=== PATIENT | female | born 1995 | race Caucasian/White ===

== ENCOUNTER 2017-08-30 12:10 | Emergency (ER) | payer OTHER ==
[2017-08-30 13:11] LABS: ABS Basophils 0 10^3/ul (0-0.2); ABS Eosinophils 0.1 10^3/ul (0-0.6); ABS Lymphocytes 1.9 10^3/ul (1.0-4.8); ABS Monocytes 0.9 10^3/ul (0-0.8); ABS Neutrophils 9.1 10^3/ul (1.5-7.7); ABS Nucleated RBC 0 10^3/ul; Eosinophil % 0.9 % (0-6); Hematocrit 41 % (35-47); Hemoglobin 13.8 g/dl (12.0-16.0); Lymphocyte % 15.7 % (25-47); Mean Corpuscular HGB Conc 34 g/dl (31-36); Mean Corpuscular Hemoglobin 30 pg (27-31); Mean Corpuscular Volume 87 fL (80-97); Mean Platelet Volume 8 um3 (7.4-10.4); Nucleated Red Blood Cells % 0; Platelet Count 334 10^3/ul (150-450); Red Blood Count 4.68 10^6/ul (4.0-5.4); Red Cell Distribution Width 13 % (10.5-15); White Blood Count 12.1 10^3/ul (3.5-10.8)
[2017-08-30 13:11] LABS: Urine Appearance Cloudy; Urine Blood 3+ (Negative); Urine Color Amber; Urine Ketones Negative (Negative); Urine Protein 3+(>=500 mg/dL) (Negative); Urine Specific Gravity 1.026 (1.010-1.030); Urine Urobilinogen Negative (Negative)
--- NOTE | 2017-08-30 13:29 | ED ---
Tay Calixto Angela, scribed for Faiza Peterson MD on 08/30/17 at 1313 . - HPI Summary HPI Summary: This pt is a 22 y/o female, currently 7 weeks , presenting to [facility] c/o vaginal bleeding s/p accidental fall 4 steps down today. She reports the stairs are made out of carpet and are slippery, she was in socks when she slipped and fell. Denies anyone pushed her. Denies head strike or LOC. Denies blood from ear, nose, or mouth. Pt now c/o cramps on lower abd, burningn with urination, urinary frequency, mild right elbow pain, and sore lower back. She did not have abd pain prior to fall but maybe some dysuria. Pt notes she is not dripping blood, no vaginal loss of fluids, and but pink on toilet tissue after urinating. Pt has had a prior miscarriage when she was 6 weeks along, and had a D&C. No fevers, chills, rash. + po. She saw Dr. Jimenez yesterday for a routine check up and had an US, which was normal. Pt has never had bladder infections before. Denies any allergies. Pt Rh+ Patients medication reviewed this visit. - History of Current Complaint Chief Complaint: EDOBProblems Stated Complaint: 7 WEEKS PREG FALL DOWN STAIRS NOW BLEEDING Time Seen by Provider: 08/30/17 13:08 Hx Obtained From: Patient Chief Complaint: Vaginal Bleeding - with urination only with wiping Onset/Duration: Started Hours Ago, Traumatic, Still Present Timing: Lasting Hours Current Severity: Severe Pain Intensity: 8 Location of Pain: Suprapubic Character: Cramping Aggravating Factors: Nothing Alleviating Factors: Nothing Associated Signs and Symptoms: Positive: Back Pain - mild, Vaginal Bleeding or Discharge - vaginal bleeding, Other: - abd pain - Assessment Hx Now: Yes - 7 weeks - Allergies/Home Medications Allergies/Adverse Reactions: Allergies Allergy/AdvReac Type Severity Reaction Status Date / Time No Known Allergies Allergy Verified 07/26/16 10:19 PMH/Surg Hx/FS Hx/Imm Hx Previously Healthy: Yes Endocrine/Hematology History: Denies: Hx Diabetes Cardiovascular History: Denies: Hx Hypertension, Hx Pacemaker/ICD Sensory History: Denies: Hx Hearing Aid Psychiatric History: Denies: Hx Panic Disorder - Surgical History Surgery Procedure, Year, and Place: tonsills, adenoids, ear tubes. CHOLECYSTECTOMY. D&C Infectious Disease History: No Infectious Disease History: Denies: History Other Infectious Disease, Traveled Outside the [place] in Last 30 Days - Family History Known Family History: Negative: Hypertension, Diabetes - Social History Occupation: Unemployed Lives: With Family Alcohol Use: None Substance Use Type: Reports: None Smoking Status (MU): Never Smoked Tobacco Review of Systems Negative: Fever, Chills Eyes: Negative ENT: Negative Cardiovascular: Negative Respiratory: Negative Positive: Abdominal Pain. Negative: Vomiting, Nausea Positive: other - vaginal bleeding Musculoskeletal: Other - back pain, right elbow pain Skin: Negative Neurological: Negative All Other Systems Reviewed And Are Negative: Yes Physical Exam - Physical Exam Triage Information Reviewed: Yes Vital Signs Reviewed: Yes Appearance: Positive: Well-Appearing, No Pain Distress, Well-Nourished Skin: Positive: Warm, Skin Color Reflects Adequate Perfusion, Dry, Other - no contusions, abraisons abd, back Head/Face: Positive: Normal Head/Face Inspection Eyes: Positive: Normal, EOMI, RICHY ENT: Positive: Normal ENT inspection, Hearing grossly normal, Pharynx normal, TMs normal Neck: Positive: Supple, Nontender, No Lymphadenopathy Respiratory/Lung Sounds: Positive: Clear to Auscultation, Breath Sounds Present , Decreased Breath Sounds Cardiovascular: Positive: Normal, RRR. Negative: Murmur Abdomen Description: Positive: Nontender, No Organomegaly, Soft, Other: - + BS no guarding, no rebound, soft Pelvic: no external lesions scant which mucous discharge in cervix No blood in os No blood in vault No CMT no odor No blood noted. Negative: CVA Tenderness (R), CVA Tenderness (L) Bowel Sounds: Positive: Present Musculoskeletal: Positive: Normal, Other - No pain c/t/l/s Full AROM c spine mild paraspinal pain low lumbar Neurological: Positive: Normal, Sensory/Motor Intact, Alert, Oriented to Person Place, Time Psychiatric: Positive: Normal AVPU Assessment: Alert - [place] Coma Scale Eye: 4 - Spontaneous Motor: 6 - Obeys Commands Verbal: 5 - Oriented Coma Scale Total: 15 Diagnostics - Vital Signs Vital Signs Temp Pulse Resp BP Pulse Ox 08/30/17 12:16 99.2 F 65 18 157/74 97 - Laboratory Result Diagrams: 08/30/17 12:52 08/30/17 12:52 Lab Statement: Any lab studies that have been ordered have been reviewed, and results considered in the medical decision making process. - Ultrasound No standard instances Ultrasound Interpretation: Positive (See Comments) - Transvaginal US IMPRESSION : Single live intrauterine gestation at 6 weeks, 6 days by crown-rump length. This is slightly discordant with the age by dates. Recommend attention on follow -up imaging. Dr. Peterson has reviewed this radiology report. Ultrasound Interpretation Completed By: Radiologist Re-Evaluation - Re-Evaluation First Eval Re-Evaluation Time: 14:35 Change: Improved - pain slightly iimproved labs stable us reassuring + uti will start keflex hydrate ob followup return precautions pelvic rest urine cultre, supervisor electronics testing cultures Course/Dx - Course Course Of Treatment: Pt is 7 weeks with dysuria, frequency, urgency, pink on toilet tissue s/p mechanical fall this morning. Pt reports lower abdominal disocmfort. . Pt with no blood on pelvic exam and closed os. Will check labs, ultrasound urne. APAP. reassess - Diagnoses Provider Diagnoses: UTI (urinary tract infection), Contusion, Fall Discharge - Discharge Plan Condition: Stable Disposition: HOME Prescriptions: Cephalexin CAP* [Keflex CAP*] 500 mg PO TID #21 cap Patient Education Materials: Contusion in Adults (ED), Urinary Tract Infection in (ED) Referrals: Aleah Garcia [Primary Care Provider] - Additional Instructions: - Stay well hydrated. Drink plenty of non-alcoholic, non-caffinated beverages - Okay to take tylenol every 6 hours as needed for john - Apply heat to the areas of discomfort - Take antibiotics as prescribed until gone - You urine had been sent for additional testing - if you need a different antibiotics, a member of our care team will contact you - If you develop fevers, back pain, vomiting, increased pain, contracts or ANY other concerns - contact your supervisor electronics testing or return to the emergency department - Contact your supervisor electronics testing to schedule a follow-up appointment The documentation as recorded by the Tay rosas Angela accurately reflects the service I personally performed and the decisions made by , Faiza Peterson MD.
[2017-08-30 13:37] LABS: EGFR Non-African American 135.4 (>60)
[2017-08-30] MEDS ORDERED: Cephalexin CAP* 500 MG PO ONE (14:48)
--- NOTE | 2017-08-30 14:56 | RAD ---
HISTORY: , vaginal bleeding, fall, gestational age by dates of 8 weeks and 2 days COMPARISONS: None relevant TECHNIQUE: Multiple transverse and longitudinal ultrasound images were obtained of the pelvis using grayscale, color Doppler, spectral Doppler imaging and M-Mode Doppler imaging using the endovaginal transducer. FINDINGS: UTERUS: The uterus is normal in shape, size, contour, and echotexture. GESTATION: There is a single live intrauterine gestation. The crown-rump length measures 0.87 cm for a gestational age of 6 weeks and 6 days. The PRINCE is April 19, 2015 by the crown-rump length. This is slightly discordant with the age by dates... cardiac motion is detected at a rate of 132 beats per minute. Gross movement is not identified. anatomy cannot be assessed secondary to early dates. The amniotic fluid is qualitatively normal. There are no retroplacental fluid collections. CUL-DE-SAC: There is no free fluid within the cul-de-sac. RIGHT OVARY: The right ovary measures 3.2 x 1.4 x 2.4 cm. Normal arterial and venous waveforms are identifiable within the ovary on spectral Doppler imaging. LEFT OVARY: The left ovary measures 2.4 x 2.1 x 2.4 cm. Normal arterial and venous waveforms are identifiable within the ovary on spectral Doppler imaging. BLADDER: The bladder is not well visualized. IMPRESSION: SINGLE LIVE INTRAUTERINE GESTATION AT 6 WEEKS, 6 DAYS BY CROWN-RUMP LENGTH. THIS IS SLIGHTLY DISCORDANT WITH THE AGE BY DATES. RECOMMEND ATTENTION ON FOLLOW-UP IMAGING.
[2017-08-30 17:47] VITALS: BP 151/87
--- NOTE | 2017-09-02 09:16 | PN ---
Progress Note - Progress Note Date of Service: 08/30/17 Note: patient diagnosed and treated for UTI. Placed on keflex. has susceptibility on urine final culture results. no further changes required at this time.
== END 2017-08-30 15:05 | disposition home or self-care (01) ==
LOC: ED 12:10
DX: O23.41 Unspecified infection of urinary tract in pregnancy, first trimester (principal); Z3A.01 Less than 8 weeks gestation of pregnancy; S50.01XA Contusion of right elbow, initial encounter; M54.9 Dorsalgia, unspecified; R10.30 Lower abdominal pain, unspecified; W10.9XXA Fall (on) (from) unspecified stairs and steps, initial encounter; Y92.9 Unspecified place or not applicable
CPT/HCPCS: 36415; 76817; 80048; 81003; 81015; 83735; 84702; 85025; 86900; 86901; 87077; 87086; 87186; 87480; 87491; 87510; 87591; 87661; 99283; A9270-GY

== ENCOUNTER 2017-11-16 13:48 | Emergency (ER) | payer OTHER ==
[2017-11-16 14:24] VITALS: BP 133/63
--- NOTE | 2017-11-16 21:35 | UC ---
Lesley Calixto Gabriel, scribed for Tyler Martines MD on 11/16/17 at 1454 . Back Pain HPI - HPI Summary HPI Summary: This patient is a 22 year old F presenting to [facility] with a chief complaint of bilateral flank pain since 11-08-17. The patient was seen by OB on the and they told her there were no major concerns. Since then the pain has gotten worse and it is mostly on the right. The patient rates the pain 5/10 in severity and states it does not radiate. She is 18 weeks . . LNMP was Jul.04. Patient denies vaginal discharge and bleeding. - History of Current Complaint Chief Complaint: UCBackPain Stated Complaint: SIDE PAIN Time Seen by Provider: 11/16/17 14:27 Hx Obtained From: Patient Hx Last Menstrual Period: started 09/05 - still bleeding Onset/Duration: Lasting Days, Still Present Timing: Constant Severity Initially: Mild Severity Currently: Moderate Pain Intensity: 5 Pain Scale Used: 0-10 Numeric Associated Signs And Symptoms: Positive: Negative - vaginal discharge and bleeding, Other - bilat flank pain - Allergies/Home Medications Allergies/Adverse Reactions: Allergies Allergy/AdvReac Type Severity Reaction Status Date / Time No Known Allergies Allergy Verified 11/16/17 14:24 Home Medications: Home Medications Vit37/Iron/Folic Acid [Prenata Chewable Tablet] 1 tab PO DAILY [History Confirmed 11/16/17] PMH/Surg Hx/FS Hx/Imm Hx Previously Healthy: Yes Other History Of: Negative For: Hepatitis C, Anticoagulant Therapy - Surgical History Surgical History: Yes Surgery Procedure, Year, and Place: tonsills, adenoids, ear tubes. CHOLECYSTECTOMY. D&C - Family History Known Family History: Negative: Hypertension, Diabetes - Social History Lives: With Family Alcohol Use: None Substance Use Type: None Smoking Status (MU): Never Smoked Tobacco - Immunization History Vaccination Up to Date: Yes Review of Systems Genitourinary: Negative - bleeding and discharge Musculoskeletal: Negative - bilat flank pain All Other Systems Reviewed And Are Negative: Yes Physical Exam - Summary Physical Exam Summary: VITAL SIGNS: Reviewed. GENERAL: Patient is an obese F who is lying comfortable in the stretcher. Patient is not in any acute respiratory distress. HEAD AND FACE: Normocephalic EYES: PERRLA, EOMI x 2. EARS: Hearing grossly intact. MOUTH: Oropharynx within normal limits. NECK: Supple, trachea is midline, no adenopathy, no JVD, no carotid bruit. CHEST: Symmetric, no tenderness at palpation LUNGS: Clear to auscultation bilaterally. No wheezing or crackles. CVS: Regular rate and rhythm, S1 and S2 present, no murmurs or gallops appreciated. BACK: right CVA tenderness ABDOMEN: Soft, non-tender. Bowel sounds are normal. No abdominal abnormal pulsations. EXTREMITIES: Full ROM in all major joints, no edema, no cyanosis or clubbing. NEURO: Alert and oriented x 3. No acute neurological deficits. Speech is normal and follows commands. SKIN: Dry and warm Triage Information Reviewed: Yes Vital Signs: Initial Vital Signs Temp 97.6 F 11/16/17 14:19 Pulse 75 11/16/17 14:19 Resp 18 11/16/17 14:19 BP 133/63 11/16/17 14:19 Pulse Ox 100 11/16/17 14:19 Vital Signs Reviewed: Yes Re-Evaluation - Re-Evaluation First Eval Re-Evaluation Time: 15:40 Change: Worse Comment: The pt now is complaining of lower ABD cramping. Back Pain Course/Dx - Course Course Of Treatment: The patient was found to have increased BP in UC. The patient will follow up with PCP for better control of BP. UA was negative for UTI. I discussed all the findings and test results with the patient. Since the patient began experiencing Abdominal cramping in the UC, and she continue to have flank pain she was instructed to report to the ED for further testing. It was suggested she take an ambulance but she declined and decided to get a ride from her partner. Plan of care was discussed with the patient, and patient understands and agrees. All questions were answered to patient satisfaction. There were no further complaints or concerns. - Differential Dx/Diagnosis Provider Diagnoses: Elevated blood pressure without a previous diagnoses of hypertension and flank pain Discharge - Sign-Out/Discharge Documenting (check all that apply): Discharge - Discharge Plan Condition: Stable Disposition: HOME Patient Education Materials: (ED), Flank Pain (ED) Referrals: Aleah Garcia [Primary Care Provider] - Additional Instructions: Patient will be discharge to the ED for further assessment. Patient declined ambulance. FOLLOW UP WITH YOUR PRIMARY CARE PROVIDER WITHIN ONE WEEK FOR HIGH BLOOD PRESSURE NOTED TODAY. RETURN TO URGENT CARE OR THE ED FOR ANY WORSENING OR NEW SYMPTOMS. - Billing Disposition and Condition Condition: STABLE Disposition: HOME The documentation as recorded by the Lesley rosas Gabriel accurately reflects the service I personally performed and the decisions made by me, Tyler Martines MD.
--- NOTE | 2017-11-18 10:22 | UC ---
- Progress Note Progress Note: final urine culture reviewed No change rosario 11/18/2017 Re-Evaluation - Re-Evaluation First Eval Re-Evaluation Time: 15:40 Change: Worse Comment: The pt now is complaining of lower ABD cramping. Discharge - Sign-Out/Discharge Documenting (check all that apply): Discharge - Discharge Plan Condition: Stable Disposition: HOME Patient Education Materials: (ED), Flank Pain (ED) Referrals: Aleah Garcia [Primary Care Provider] - Additional Instructions: Patient will be discharge to the ED for further assessment. Patient declined ambulance. FOLLOW UP WITH YOUR PRIMARY CARE PROVIDER WITHIN ONE WEEK FOR HIGH BLOOD PRESSURE NOTED TODAY. RETURN TO URGENT CARE OR THE ED FOR ANY WORSENING OR NEW SYMPTOMS. - Billing Disposition and Condition Condition: STABLE Disposition: HOME
== END 2017-11-16 15:45 | disposition home or self-care (01) ==
LOC: UCEAST 13:48
DX: O26.892 Other specified pregnancy related conditions, second trimester (principal); R10.32 Left lower quadrant pain; R10.31 Right lower quadrant pain; Z3A.18 18 weeks gestation of pregnancy
CPT/HCPCS: 81003; 87086; 99212; G0463

== ENCOUNTER 2018-04-15 22:09 | Inpatient (IN) | payer MEDICAID, OTHER ==
--- NOTE | 2018-04-16 00:50 | PN ---
L&D Outpatient: Visit - Reproductive Information Estimated Due Date: 04/16/18 Gestational Age: 40 Weeks and 0 Days : 3 Para: 1 - Reason for Visit Visit Reason: contractions - Antepartal Records Antepartal Record: Reviewed, Complicated by: - obesity - Patient History Patient History Significant: Yes Patient History Significant For: h/o retained placenta Review of Systems Constitutional: Comfortable CV Complaint: No Respiratory: Shortness of Breath: No Gastrointestinal: No Nausea/Vomiting Genitourinary: No Dysuria, No Leaking Fluid Musculoskeletal: No Complaint Neurological: No Headache Movement: Normal L&D Outpatient: Exam - Cervical Exam Cervical Exam: 1:00 AM 3+/70/high recheck 3:00 AM 3+/70/-3 recheck 5:30 Am 4/80/-2 - Abdominal Exam Abdomen Exam: Non-Tender - Membranes Membrane Status: Intact - Ultrasound/Biophysical Profile Ultrasound Status: Not Done EFM Findings - External Monitor Findings Baseline Heart Rate: 130 - recheck 3:00 AM 110 recheck: 110 5:30 AM External Monitor Findings: Accelerations Present, Variability Moderate Contractions: Mild - irregular contractions L&D Outpatient: Asses/Plan - Discharge Diagnosis Discharge Diagnosis: False Labor Plan: Continue Observation
[2018-04-16] MEDS ORDERED: Nalbuphine* 10 MG/ML 1 ML VIAL IM PRN (06:00)
[2018-04-16] MEDS ORDERED: Oxytocin in LR* 20 UNITS/1,000 ML BAG IVPB ONE (10:36)
--- NOTE | 2018-04-16 10:50 | HP ---
General Information - Reason for Visit labor - General Information Maternal Age: 22 Grav: 3 Para: 1 SAB: 1 IEA: 0 Estimated Due Date: 04/16/18 Determined By: Early Ultrasound Maternal Blood Type and Rh: O Positive - Results this Serology/RPR Result: Non-Reactive Rubella Result: Immune HBsAg Result: Negative HIV Result: Negative GBS Culture Result: Negative Past Medical History Delivery History: Hx Complicated Vaginal Delivery - retained placenta, See Records Pertinent Past Medical History: See Records Pertinent Past Surgical History: See Records Pertinent Family History: Non-Contributory - Antepartal Records Antepartal Records: Reviewed, Complicated by: - BMI 48 prepregnancy - lost 25lbs during Review of Systems Constitutional: Comfortable CV Complaint: Yes Respiratory: Shortness of Breath: Yes Gastrointestinal: No Nausea/Vomiting Genitourinary: Bleeding - bloody show, No Dysuria, No Leaking Fluid Musculoskeletal: Contractions Neurological: No Headache Movement: Normal Exam Allergies/Adverse Reactions: Allergies No Known Allergies Allergy (Verified 03/24/18 20:39) - Measurements Height: 5 ft 5 in Weight: 272 lb Weight in lbs: [phone] Body Mass Index (BMI): 45.2 Pre- Weight: 298 lb 0.016 oz Weight Gained This : -26.001 lbs and 0 ozs - Exam Breast: Breast Exam Deferred Extremities: No Edema Heart: Normal Rhythm/Heart Sounds HEENT: No Significant Findings - Abdominal Exam Abdomen Exam: Non-Tender - Ultrasound/Biophysical Profile Ultrasound Status: Not Done Targeted Exam Findings See L&D Outpatient Visit Provider Note for Findings: Yes Cervical Exam: 5cm Effacement: 90% Station: Ballotable, -3 Presenting Part: Vertex Membrane Status: Bulging EFM Findings - External Monitor Findings Baseline Heart Rate: 130 External Monitor Findings: Accelerations Present, No Pattern of Variable or Late Decelerations, Variability Moderate Contractions: Regular - q2-3min Assessment/Plan - Assessment @40wks in early labor. Head ballotable so will not AROM yet. Pt interested in starting pitocin. - Obstetrical Risk Factors Obstetrical Risk Factors: Obesity - Plan Plan: Induction - Will augment with pitocin
[2018-04-16] MEDS ORDERED: Oxytocin in LR* 20 UNITS/1,000 ML BAG IVPB SCH (11:00)
[2018-04-16 11:27] LABS: ABS Basophils 0 10^3/ul (0-0.2); ABS Eosinophils 0 10^3/ul (0-0.6); ABS Lymphocytes 1.8 10^3/ul (1.0-4.8); ABS Monocytes 0.9 10^3/ul (0-0.8); ABS Neutrophils 8.7 10^3/ul (1.5-7.7); ABS Nucleated RBC 0 10^3/ul; Eosinophil % 0.3 % (0-6); Hematocrit 39 % (35-47); Hemoglobin 13.3 g/dl (12.0-16.0); Lymphocyte % 15.5 % (25-47); Mean Corpuscular HGB Conc 34 g/dl (31-36); Mean Corpuscular Hemoglobin 30 pg (27-31); Mean Corpuscular Volume 87 fL (80-97); Mean Platelet Volume 9.6 um3 (7.4-10.4); Nucleated Red Blood Cells % 0; Platelet Count 248 10^3/ul (150-450); Red Blood Count 4.48 10^6/ul (4.00-5.40); Red Cell Distribution Width 14 % (10.5-15); White Blood Count 11.4 10^3/ul (3.5-10.8)
[2018-04-16] MEDS ORDERED: Nalbuphine* 10 MG/ML 1 ML VIAL IV PRN (14:33)
[2018-04-16] MEDS ORDERED: Nalbuphine* 10 MG/ML 1 ML VIAL ONE (14:38)
[2018-04-16] MEDS ORDERED: Witch Hazel PAD* JAR TOPICAL PRN (16:42)
[2018-04-16] MEDS ORDERED: Glycerin ADULT SUPP PR PRN (16:42)
[2018-04-16] MEDS ORDERED: Dibucaine 1% 28.35 GM TUBE PR PRN (16:42)
[2018-04-16] MEDS ORDERED: Ibuprofen TAB* 600 MG ONE (17:07)
[2018-04-16] MEDS: Ibuprofen TAB* 600 MG PO PRN ×2 (17:08→23:33)
[2018-04-16] MEDS ORDERED: Simethicone TAB* 80 MG TAB.CHEW PO SCH (17:30)
--- NOTE | 2018-04-16 17:44 | PROCNOTE ---
[facility] OB: Delivery Note - Perineum Perineal Injury: None/Intact - Events Delivery Events of Note: Pitocin During Labor - Additional Delivery Notes Additional Delivery Notes: Delivery type: Delivering provider: Dr. Ramon Pt presented in early labor and eventually received pitocin augmentation. She then progressed to 5cm and underwent SROM and quickly progressed to fully dilated. She pushed once to deliver the baby's head in NILESH position. With reduction of a compound posterior hand she pushed to deliver the shoulders and the rest of the body. The baby was placed on mom's abdomen and the cord was clamped x2 and cut after 1min. Cord blood collected. Placenta delivered with fundal massage and gentle cord traction and appeared intact. No lacerations. Mom and baby stable Apgars: 8/9 Weight: 7lb 9oz Gender: Male - Jaece
[2018-04-17 06:23] LABS: ABS Basophils 0 10^3/ul (0-0.2); ABS Eosinophils 0.1 10^3/ul (0-0.6); ABS Lymphocytes 2.9 10^3/ul (1.0-4.8); ABS Monocytes 1.5 10^3/ul (0-0.8); ABS Neutrophils 10.1 10^3/ul (1.5-7.7); ABS Nucleated RBC 0 10^3/ul; Eosinophil % 0.5 % (0-6); Hematocrit 36 % (35-47); Hemoglobin 12.7 g/dl (12.0-16.0); Lymphocyte % 20.1 % (25-47); Mean Corpuscular HGB Conc 35 g/dl (31-36); Mean Corpuscular Hemoglobin 31 pg (27-31); Mean Corpuscular Volume 87 fL (80-97); Mean Platelet Volume 9.3 um3 (7.4-10.4); Nucleated Red Blood Cells % 0; Platelet Count 224 10^3/ul (150-450); Red Blood Count 4.17 10^6/ul (4.00-5.40); Red Cell Distribution Width 14 % (10.5-15); White Blood Count 14.6 10^3/ul (3.5-10.8)
[2018-04-17] MEDS: Docusate CAP* 100 MG PO SCH ×3 (08:09→22:25)
[2018-04-17] MEDS: Ibuprofen TAB* 600 MG PO PRN ×3 (08:09→22:25)
[2018-04-17] MEDS ORDERED: Ferrous Gluconate TAB* 324 MG TAB PO SCH (09:00)
[2018-04-17 20:56] VITALS: BP 140/73
[2018-04-17] MEDS: Acetaminophen TAB* 325 MG PO PRN (22:24)
[2018-04-18] MEDS: Acetaminophen TAB* 325 MG PO PRN (08:11)
[2018-04-18] MEDS: Docusate CAP* 100 MG PO SCH (08:11)
[2018-04-18] MEDS: Ibuprofen TAB* 600 MG PO PRN (08:12)
== END 2018-04-18 13:30 | disposition home or self-care (01) | DRG 560 ==
LOC: MCHOBOUT 22:09 → MCHOB 04-16 10:37
PROVIDERS: ADMIT Obstetrics & Gynecology; ATTEND Obstetrics & Gynecology
PROC: 10E0XZZ Delivery of Products of Conception, External Approach (ICD-10-PCS; principal; 2018-04-16)
PROC: 3E033VJ Introduction of Other Hormone into Peripheral Vein, Percutaneous Approach (ICD-10-PCS; 2018-04-16)
DX: O99.214 Obesity complicating childbirth (principal); Z68.42 Body mass index [BMI] 45.0-49.9, adult; E66.9 Obesity, unspecified; O32.6XX0 Maternal care for compound presentation, not applicable or unspecified; Z3A.40 40 weeks gestation of pregnancy; Z37.0 Single live birth
CPT/HCPCS: 36415; 85025; 86850; 86900; 86901; A9270-GY; J2300

== ENCOUNTER 2022-11-11 09:48 | Inpatient (IN) ==
[2022-11-11] MEDS ORDERED: Buffered Lidocaine 1% SYRIN 1 ml INTRADERM ONE (11:34)
[2022-11-11] MEDS ORDERED: Nalbuphine 10 MG/ML 1 ML VIAL IV PRN (11:34)
[2022-11-11] MEDS ORDERED: Promethazine INJ(RESTRICTED) 25 MG/ML 1 ml VIAL IV PRN (11:34)
[2022-11-11] MEDS ORDERED: Dinoprostone 10 MG VAG.SUPP VAGINAL ONE (11:34)
[2022-11-11] MEDS ORDERED: Lactated Ringers 1000 ml BAG 1,000 ML IV ONE (11:34)
[2022-11-11] MEDS ORDERED: Lactated Ringers 1000 ml BAG 1,000 ML IV SCH (12:00)
[2022-11-11 14:07] LABS: ABS Eosinophils 0.1 10^3/ul (0-0.6); ABS Lymphocytes 1.7 10^3/ul (1.0-4.8); Eosinophil % 1.1 %; Hematocrit 39 % (35-47); Hemoglobin 13.1 g/dL (12.0-16.0); Lymphocyte % 17.6 %; Mean Corpuscular HGB Conc 34 g/dL (31-36); Mean Corpuscular Hemoglobin 30 pg (27-31); Mean Corpuscular Volume 88 fL (80-97); Mean Platelet Volume 9.6 fL (7.4-10.4); Platelet Count 251 10^3/uL (150-450); Red Blood Count 4.44 10^6 /uL (3.70-4.87); Red Cell Distribution Width 14 % (10-15); White Blood Count 9.9 10^3/uL (3.5-10.8)
[2022-11-11 14:27] LABS: Urine Benzodiazepine Screen None Detected (None Detect); Urine Cannabinoids Screen None Detected (None Detect); Urine Opiates Screen None Detected (None Detect)
[2022-11-11 14:56] LABS: Albumin 3.4 g/dL (3.2-5.2); Albumin/Globulin Ratio 1.5 (1-3); Creatinine, Serum 0.42 mg/dL (0.51-0.95); Globulin 2.3 g/dL (2-4); Potassium 4.4 mmol/L (3.5-5.0); Total Bilirubin 0.2 mg/dL (0.2-1.0); Total Protein 5.7 g/dL (6.4-8.9); eGFR CKD-EPI 137.4 (>60)
[2022-11-12] MEDS ORDERED: Oxytocin in LR 20,000 MILLI.UNIT/1,000 ML BAG IV SCH ×2 (04:15→16:30)
[2022-11-12] MEDS ORDERED: Tranexamic Acid 1 GM/100ML BAG 0 MG/0 ML BAG IV ONE (10:20)
[2022-11-12] MEDS ORDERED: Methylergonovine 0.2 mg AMPULE 1 ml AMP ONE (10:21)
[2022-11-12] MEDS ORDERED: fentaNYL 100 mcg/2 ml 50 MCG/ML VIAL IV SLOW PU PRN ×2 (13:08→14:35)
[2022-11-12] MEDS ORDERED: Promethazine INJ(RESTRICTED) 25 MG/ML 1 ml VIAL IV PRN (13:09)
[2022-11-12] MEDS ORDERED: Glycerin ADULT 2.4 gm SUPP PR PRN (16:19)
[2022-11-12] MEDS ORDERED: Witch Hazel PAD JAR TOPICAL PRN (16:19)
[2022-11-12] MEDS ORDERED: Dibucaine 1% OINT 28.35 GM TUBE PR PRN (16:19)
[2022-11-12] MEDS ORDERED: ceFOXitin 2 GM IVPREMIX 2 GM/50 ML BAG IVPB ONE (16:20)
[2022-11-12] MEDS ORDERED: Lactated Ringers 1000 ml BAG 1,000 ML IV SCH (17:00)
[2022-11-13] MEDS ORDERED: Varicella Virus Vaccine Live 0.5 ML VIAL SUBCUT ONE (09:00)
[2022-11-13] MEDS ORDERED: Tetan/Diph/Pertus SYR(Tdap) 0.5 ML SYR(BOOSTRIX) use SYR contains LATEX IM ONE (09:00)
[2022-11-13 09:19] LABS: ABS Eosinophils 0.1 10^3/ul (0-0.6); ABS Monocytes 1.4 10^3/ul (0-0.8); Eosinophil % 0.7 %; Hematocrit 37 % (35-47); Hemoglobin 12.5 g/dL (12.0-16.0); Lymphocyte % 14.8 %; Mean Corpuscular HGB Conc 34 g/dL (31-36); Mean Corpuscular Hemoglobin 30 pg (27-31); Mean Corpuscular Volume 87 fL (80-97); Mean Platelet Volume 9.2 fL (7.4-10.4); Platelet Count 235 10^3/uL (150-450); Red Blood Count 4.24 10^6 /uL (3.70-4.87); Red Cell Distribution Width 14 % (10-15); White Blood Count 13.6 10^3/uL (3.5-10.8)
[2022-11-14 08:52] VITALS: BP 141/76
[2022-11-14] MEDS ORDERED: Tetan/Diph/Pertus SYR(Tdap) 0.5 ML SYR(BOOSTRIX) use SYR contains LATEX IM ONE (14:00)
[2022-11-14] MEDS ORDERED: Varicella Virus Vaccine Live 0.5 ML VIAL SUBCUT ONE (14:00)
== END 2022-11-14 14:20 | disposition home or self-care (01) | DRG 560 ==
LOC: MCHOBOUT 09:48 → MCHOB 11:38
PROVIDERS: ADMIT Obstetrics & Gynecology; ATTEND Obstetrics & Gynecology